=== PATIENT | male | born 2000 | race Caucasian/White ===

== ENCOUNTER 2021-05-02 09:21 | Emergency (ER) | payer OTHER ==
[~2021-05-02] VITALS: Ht 188 cm; Wt 109.0 kg
[2021-05-02] MEDS ORDERED: NAPR220C14 PO (09:50)
[2021-05-02 11:49] LABS: BASO % 0.7 % (0.0-1.0); EOS # 0.1 10^3/uL (0.0-0.5); EOS % 1.6 % (0.0-3.0); HEMATOCRIT 46.5 % (42.0-52.0); HEMOGLOBIN 15.3 g/dl (13.5-17.5); LYMPH # 1.8 10^3/uL (1.5-5.0); LYMPH % 31.9 % (24.0-44.0); MEAN CORPUSCULAR HEMOGLOBIN 30.4 pg (27.0-33.0); MEAN CORPUSCULAR HGB CONC 32.9 g/dl (32.0-36.5); MEAN CORPUSCULAR VOLUME 92.4 fl (80.0-96.0); MONO # 0.3 10^3/uL (0.0-0.8); MONO % 5.8 % (2.0-8.0); NEUTROPHILS # 3.4 10^3/uL (1.5-8.5); PLATELET COUNT, AUTOMATED 228 10^3/uL (150-450); RED BLOOD COUNT 5.03 10^6/uL (4.30-6.10); WHITE BLOOD COUNT 5.7 10^3/uL (4.0-10.0)
--- NOTE | 2021-05-02 11:54 | REP ---
INDICATION: severe headaches with exertion. COMPARISON: None. TECHNIQUE: CT brain performed in the axial plane. Coronal reconstruction images are performed. FINDINGS: The ventricles are normal in size and position.. There is no midline shift or mass effect. Jeff-white differentiation is well maintained. There is no acute intracranial hemorrhage or extra-axial fluid collection. Bone window examination is unremarkable. The visualized mastoid air cells and paranasal sinuses are clear. IMPRESSION: Negative noncontrast CT brain. <Electronically signed by Gilbert Jeff > 05/02/21 2365
--- NOTE | 2021-05-02 12:05 | REP ---
INDICATION: exertional headache/ tachycardia COMPARISON: None. TECHNIQUE: PA/Lateral FINDINGS: Lungs: Clear, no infiltrate. Heart: Normal in size. Mediastinum: Mediastinal silhouette unremarkable. Pleural angles: Unremarkable.. Bones and soft tissues: Unremarkable. IMPRESSION: No acute pulmonary disease. <Electronically signed by Gilbert Jeff > 05/02/21 1205
[2021-05-02 12:23] LABS: THYROID STIMULATING HORMONE 1.92 uIU/ML (0.358-3.740)
[2021-05-02] MEDS ORDERED: NORT10CA2 PO (12:41)
[2021-05-02 13:12] VITALS: BP 136/86
--- NOTE | 2021-05-04 19:44 | ECGEPIP ---
[facility] - ED Test Date: 2021-05-02 Pat Name: KATIE GARNICA Department: Room: - Gender: Male Copy Chaser: Kristi SUAZO : 2000 Requested By: MARCIAL Bermudez PA-C Order Number: [id number] Reading MD: Renee Klein Measurements Intervals [place] Rate: 60 P: 61 IL: 192 QRS: 67 QRSD: 110 T: 35 QT: 412 QTc: 412 Interpretive Statements Normal sinus rhythm with sinus arrhythmia ivcd no prior Electronically Signed on 05-04-2021 19:44:18 EDT by Renee Klein
== END 2021-05-02 13:20 | disposition home or self-care (01) ==
LOC: M ED 09:21
DX: R51.9 Headache, unspecified (principal)

== ENCOUNTER 2021-08-02 15:21 | Emergency (ER) | payer OTHER ==
[~2021-08-02] VITALS: Ht 188 cm; Wt 102.3 kg
[~2021-08-02 15:21] MED LIST: NAPR220C14 PO; NORT10CA2 PO
--- OUTSIDE RECORDS SUMMARY | 2021-08-02 15:28 | CCD | Continuity of Care Document ---
Author Author Tashi LEI Organization Unknown Address [address] [place] [address] Phone [phone] Care Team Providers Care Reach Truck Operator Name Role Phone Bettie Foley AUTM [phone] Problems Active Problems Provider Date Migraine without aura, not refractory Rainer Parada M.D. Onset: 05/16/2021 Sudden visual loss Rainer Parada M.D. Onset: 05/16/2021 Benign exertional headache Rainer Parada M.D. Onset: 04/24 Social History Type Date Description Comments Sex Unknown Tobacco Use Start: Unknown Patient is a current smoker, smo kes every day Allergies, Adverse Reactions, Alerts Description No Known Drug Allergies Medications Active Medications SIG Qnty Indications Ordering Provide r Date Nortriptyline HCL 25mg Capsules Take one capsule at bedtime for 5 days, then take 2 capsules at bedtime. 60caps Rainer Parada M.D. 05/16/2021 Immunizations Description No Information Available Vital Signs Date Vital Result Comment 05/16/2021 8:32am Respiratory Rate 12 /min Height 74 inches 6'2" Weight 230.00 lb BMI (Body Mass Index) 29.5 kg/m2 [place] Body Weight 190 lb Results Description No Information Available Procedures Date Code Description Status 05/16/2021 74171 Office Consultation Level 4 Comp leted Medical Devices Description No Information Available Encounters Type Date Location Provider Dx Diagnosis Office Visit 05/16/2021 8:00a Main office - [place] Rainer phillips M.D. G44.84 Primary exertional headache G43.009 Migraine w/o aura, not intra ctable, w/o status migrainosus R55 Syncope and collapse Assessments Date Code Description Provider 05/16/2021 G44.84 Primary exertional headache Mitchel Parada M.D. 05/16/2021 G43.009 Migraine without aur a, not intractable, without status migrainosus Rainer Parada M.D. 05/16/2021 R55 Syncope and collapse Rainer rendon M.D. Plan of Treatment Future Appointment(s):* 09/02/2021 2:30 pm - Rainer Parada M.D. at [facility] * 07/25/2021 10:00 am - Ans/VS at [facility] * 06/23/2021 2:30 pm - EEG at [facility] Functional Status Description No Information Available Mental Status Description No Information Available Referrals Refer to Dr Reason for Referral Status Appt Date Rainer Parada M.D. Created [address] [place] [address] [phone]
--- OUTSIDE RECORDS SUMMARY | 2021-08-02 15:28 | CCD | Continuity of Care Document ---
Author Author Ans/Tashi BOLAND Organization Unknown Address [address] [place] [address] Phone [phone] Problems Active Problems Provider Date Migraine without aura, not refractory Rainer Parada M.D. Onset: 05/16/2021 Sudden visual loss Rainer Parada M.D. Onset: 05/16/2021 Benign exertional headache Rainer Parada M.D. Onset: 04/24 Social History Type Date Description Comments Sex Unknown Tobacco Use Start: Unknown Patient is a current smoker, smo kes every day Allergies and adverse reactions Description No Known Drug Allergies Medications Active [...] lb BMI (Body Mass Index) 29.5 kg/m2 [place] Body Weight 190 lb Results Description No Information Available Procedures Date Code Description Status 06/23/2021 66534 EEG Recording Awake & Asleep Com pleted 06/23/2021 43844 EEG Recording Awake & Asleep Com pleted 05/25/2021 64291 MRI Brain W/O Contrast Completed 05/25/2021 29669 MRI Brain W/O Contrast Completed 05/25/2021 04074 Magnetic Resonance Angiography N kahdar W/O Contrast Materials Completed 05/25/2021 15403 Magnetic Resonance Angiography N khadar W/O Contrast Materials Completed 05/25/2021 33371 Magnetic Resonance Angiogtaphy H ead W/O Contrast Material(S) Completed 05/25/2021 01426 Magnetic Resonance Angiogtaphy H ead W/O Contrast Material(S) Completed 05/16/2021 73968 Office Consultation Level 4 Comp leted Medical Devices Description No Information Available Encounters Type Date Location Provider Dx Diagnosis Office Visit 05/16/2021 8:00a [facility] office - [place] Rainer phillips M.D. G44.84 Primary exertional headache G43.009 Migraine w/o aura, not intra ctable, w/o status migrainosus R55 Syncope and collapse Assessments Date Code Description Provider 06/23/2021 R55 Syncope and collapse Mirna romero M.D. 06/23/2021 R55 Syncope and collapse EEG 05/25/2021 G43.009 Migraine without aur a, not intractable, without status migrainosus Cara Boyd M.D. 05/25/2021 G43.009 Migraine without aur a, not intractable, without status migrainosus MRI 05/25/2021 H53.133 Sudden visual loss, bilateral Ab dul Deb, Cesia 05/25/2021 H53.133 Sudden visual loss, bilateral MR I 05/25/2021 R55 Syncope and collapse Cara Boyd M.D. 05/25/2021 R55 Syncope and collapse MRI 05/16/2021 G44.84 Primary exertional headache Mitchel Parada M.D. 05/16/2021 G43.009 Migraine without aur a, not intractable, without status migrainosus Rainer Parada M.D. 05/16/2021 R55 Syncope and collapse Rainer rendon M.D. Plan of Treatment Future Appointment(s):* 09/02/2021 2:30 pm - Rainer Parada M.D. at [facility] Functional Status Description No Information Available Mental Status Description No Information Available Referrals Refer to Dr Reason for Referral Status Appt Date Rainer Parada M.D. Created [address] [place] [address] [phone] Rainer Parada M.D. Created [address] [place] [address] [phone]
--- OUTSIDE RECORDS SUMMARY | 2021-08-02 15:28 | CCD | Continuity of Care Document ---
Author Author Tashi LEI Organization Unknown Address [address] [place] [address] Phone [phone] Care Team Providers Care Oracle Reports Developer Name Role Phone Bettie Foley MatiasMeseret AUTM [phone] Problems Active Problems Provider Date Migraine without [...] lb BMI (Body Mass Index) 29.5 kg/m2 [place] Body Weight 190 lb Results Description No Information Available Procedures Date Code Description Status 05/25/2021 36387 MRI Brain W/O Contrast Completed 05/25/2021 76875 MRI Brain W/O Contrast Completed 05/25/2021 93620 Magnetic Resonance Angiography N khadar W/O Contrast Materials Completed 05/25/2021 17800 Magnetic Resonance Angiography N khadar W/O Contrast Materials Completed 05/25/2021 29022 Magnetic Resonance Angiogtaphy H ead W/O Contrast Material(S) Completed 05/25/2021 38697 Magnetic Resonance Angiogtaphy H ead W/O Contrast Material(S) Completed 05/16/2021 68348 Office Consultation Level 4 Comp leted Medical Devices Description No Information Available Encounters Type Date Location Provider Dx Diagnosis Office Visit 05/16/2021 8:00a [facility] Rainer phillips M.D. G44.84 Primary exertional headache G43.009 Migraine w/o aura, not intra ctable, w/o status migrainosus R55 Syncope and collapse Assessments Date Code Description Provider 05/25/2021 G43.009 Migraine without aur a, not intractable, without status migrainosus Cara Cesia Boyd 05/25/2021 G43.009 Migraine without aur a, not intractable, without status migrainosus MRI 05/25/2021 H53.133 Sudden visual loss, bilateral Ab dul Deb, Maxi.DConrad 05/25/2021 H53.133 Sudden visual loss, bilateral MR I 05/25/2021 R55 Syncope and collapse Cara Cesia Boyd 05/25/2021 R55 Syncope and collapse MRI 05/16/2021 G44.84 Primary exertional headache Mitchel Parada M.D. 05/16/2021 G43.009 Migraine without aur a, not intractable, without status migrainosus Rainer Parada M.D. 05/16/2021 R55 Syncope and collapse Rainer rendon M.D. Plan of Treatment Future Appointment(s):* 09/02/2021 2:30 pm - Rainer Parada M.D. at [facility] * 07/25/2021 10:00 am - Ans/VS at [facility] * 06/23/2021 2:30 pm - EEG at [facility] Functional Status Description No Information Available Mental Status Description No Information Available Referrals Refer to Dr Reason for Referral Status Appt Date Rainer Parada M.D. Created [address] [place] [address] [phone] Rainer Parada M.D. Created [address] [place] [address] [phone]
--- OUTSIDE RECORDS SUMMARY | 2021-08-02 15:28 | CCD | Continuity of Care Document ---
Author Author Tashi HULL Organization Unknown Address [address] [place] [address] Phone [phone] Problems Active Problems Provider Date Migraine without [...] lb BMI (Body Mass Index) 29.5 kg/m2 [place] Body Weight 190 lb Results Description No Information Available Procedures Date Code Description Status 06/23/2021 90308 EEG Recording Awake & Asleep Com pleted 06/23/2021 96158 EEG Recording Awake & Asleep Com pleted 05/25/2021 73493 MRI Brain W/O Contrast Completed 05/25/2021 01385 MRI Brain W/O Contrast Completed 05/25/2021 64167 Magnetic Resonance Angiography N khadar W/O Contrast Materials Completed 05/25/2021 24616 Magnetic Resonance Angiography N khadar W/O Contrast Materials Completed 05/25/2021 22881 Magnetic Resonance Angiogtaphy H ead W/O Contrast Material(S) Completed 05/25/2021 59641 Magnetic Resonance Angiogtaphy H ead W/O Contrast Material(S) Completed 05/16/2021 14374 Office Consultation Level 4 Comp leted Medical Devices Description No Information Available Encounters Type Date Location Provider Dx Diagnosis Office Visit 05/16/2021 8:00a [facility] Rainer phillips M.D. G44.84 Primary exertional headache [...] 2:30 pm - Rainer Parada M.D. at [facility] * 07/25/2021 10:00 am - Ans/VS at [facility] Functional Status Description No Information Available Mental Status Description No Information Available Referrals Refer to Reason for Referral Status Appt Date Rainer Parada M.D. Created 0 [facility] [place] [address] [phone] Rainer Parada M.D. Created [address] [place] [address] [phone]
--- OUTSIDE RECORDS SUMMARY | 2021-08-02 15:28 | CCD | Continuity of Care Document ---
Author Author Tashi TAPIA M.D. Organization Unknown Address [address] [place] [address] Phone [phone] Care Team Providers Care Manager Grant Name Role Phone AjmichaelangelBettie AUTM [phone] Problems Active Problems Provider Date Migraine without aura, not refractory Rainer Tapia M.D. Onset: 05/16/2021 Sudden visual loss Rainer Tapia M.D. Onset: 05/16/2021 Benign exertional headache Rainer Tapia M.D. Onset: 04/24 Social History Type Date Description Comments Sex Unknown Tobacco Use Start: Unknown Patient is a current smoker, smo kes every day Allergies, Adverse Reactions, Alerts Description No Known Drug Allergies Medications Active Medications SIG Qnty Indications Ordering Provide r Date Nortriptyline HCL 25mg Capsules Take one capsule at bedtime for 5 days, then take 2 capsules at bedtime. 60caps Rainer Tapia M.D. 05/16/2021 Immunizations Description No Information Available Vital Signs Date Vital Result Comment 05/16/2021 8:32am Respiratory Rate 12 /min Height 74 inches 6'2" Weight 230.00 lb BMI (Body Mass Index) 29.5 kg/m2 [place] Body Weight 190 lb Results Description No Information Available Procedures Description No Information Available Medical Devices Description No Information Available Encounters Description No Information Available Assessments Date Code Description Provider 05/16/2021 G44.84 Primary exertional headache Mithcel Tapia M.D. 05/16/2021 G43.009 Migraine without aur a, not intractable, without status migrainosus Rainer Tapia M.D. 05/16/2021 R55 Syncope and collapse Rainer rendon M.D. Plan of Treatment Future Appointment(s):* 09/02/2021 2:30 pm - Rainer Tapia M.D. at [facility] * 07/25/2021 10:00 am - Ans/VS at [facility] * 06/23/2021 2:30 pm - EEG at [facility] Functional Status Description No Information Available Mental Status Description No Information Available Referrals Description No Information Available
--- OUTSIDE RECORDS SUMMARY | 2021-08-02 15:28 | CCD | Continuity of Care Document ---
Author Author Tashi HULL Organization Unknown Address [address] [place] [address] Phone [phone] Care Team Providers Care Manufacturing Process Technician Name Role Phone Bettie Foley MatiasMeseret AUTM [phone] Problems Active Problems Provider Date Migraine without [...] lb BMI (Body Mass Index) 29.5 kg/m2 [place] Body Weight 190 lb Results Description No Information Available Procedures Date Code Description Status 05/25/2021 30836 MRI Brain W/O Contrast Completed 05/25/2021 75174 MRI Brain W/O Contrast Completed 05/25/2021 20920 Magnetic Resonance Angiography N khadar W/O Contrast Materials Completed 05/25/2021 57824 Magnetic Resonance Angiography N khadar W/O Contrast Materials Completed 05/25/2021 04134 Magnetic Resonance Angiogtaphy H ead W/O Contrast Material(S) Completed 05/25/2021 28844 Magnetic Resonance Angiogtaphy H ead W/O Contrast Material(S) Completed 05/16/2021 00889 Office Consultation Level 4 Comp leted Medical Devices Description No Information Available Encounters Type Date Location Provider Dx Diagnosis Office Visit 05/16/2021 8:00a [facility] Rainer phillips M.D. G44.84 Primary exertional headache G43.009 Migraine w/o aura, not intra ctable, w/o status migrainosus R55 Syncope and collapse Assessments Date Code Description Provider 05/25/2021 G43.009 Migraine without aur a, not intractable, without status migrainosus Cara DebCesia betancur 05/25/2021 G43.009 Migraine without aur a, not [...] 2:30 pm - Rainer Parada M.D. at [facility] * 07/25/2021 10:00 am - Ans/VS at [facility] Functional Status Description No Information Available Mental Status Description No Information Available Referrals Refer to Dr Reason for Referral Status Appt Date Rainer Parada M.D. Created [address] [place] [address] [phone] Rainer Parada M.D. Created [address] [place] [address] [phone]
--- OUTSIDE RECORDS SUMMARY | 2021-08-02 15:28 | CCD | Continuity of Care Document ---
Author Author Ans/Tashi BOLAND Organization Unknown Address [address] [place] [address] Phone [phone] Problems Active Problems Provider Date Migraine without [...] lb BMI (Body Mass Index) 29.5 kg/m2 [place] Body Weight 190 lb Results Description No Information Available Procedures Date Code Description Status 07/25/2021 45646 Sympathetic Skin Responses Compl eted 07/25/2021 09871 Test Autonomic Nervous System, C ardiovagal Innervation Completed 06/23/2021 96822 EEG Recording Awake & Asleep Com pleted 06/23/2021 29596 EEG Recording Awake & Asleep Com pleted 05/25/2021 18796 MRI Brain W/O Contrast Completed 05/25/2021 17488 MRI Brain W/O Contrast Completed 05/25/2021 91601 Magnetic Resonance Angiography N khadar W/O Contrast Materials Completed 05/25/2021 47157 Magnetic Resonance Angiography N khadar W/O Contrast Materials Completed 05/25/2021 80867 Magnetic Resonance Angiogtaphy H ead W/O Contrast Material(S) Completed 05/25/2021 13481 Magnetic Resonance Angiogtaphy H ead W/O Contrast Material(S) Completed 05/16/2021 26296 Office Consultation Level 4 Comp leted Medical Devices Description No Information Available Encounters Type Date Location Provider Dx Diagnosis Office Visit 05/16/2021 8:00a [facility] [place] Rainer phillips M.D. G44.84 Primary exertional headache G43.009 Migraine w/o aura, not intra ctable, w/o status migrainosus R55 Syncope and collapse Assessments Date Code Description Provider 07/25/2021 R55 Syncope and collapse Rainer rendon M.D. 07/25/2021 R55 Syncope and collapse Ans/VS 06/23/2021 R55 Syncope and collapse Mirna romero M.D. 06/23/2021 R55 Syncope and collapse EEG 05/25/2021 G43.009 Migraine without aur a, not intractable, without status migrainosus Cara Boyd M.D. 05/25/2021 G43.009 Migraine without aur a, not intractable, without status migrainosus MRI 05/25/2021 H53.133 Sudden visual loss, bilateral Ab dul Lenore BoydDConrad 05/25/2021 H53.133 Sudden visual loss, bilateral MR [...] 2:30 pm - Rainer Parada M.D. at Main office - [place] Functional Status Description No Information Available Mental Status Description No Information Available Referrals Refer to Reason for Referral Status Appt Date Rainer Parada M.D. Created [address] [place] [address] [phone] Rainer Parada M.D. Created [address] [place] [address] [phone]
--- OUTSIDE RECORDS SUMMARY | 2021-08-02 15:28 | CCD | Continuity of Care Document ---
Author Author Tashi TAPIA M.D. Organization Unknown Address [address] [place] [address] Phone [phone] Care Team Providers Care Almond Cutting Machine Tender Name Role Phone AjmichaelangelBettie AUTM Problems Active Problems Provider Date Migraine without [...] lb BMI (Body Mass Index) 29.5 kg/m2 [place] Body Weight 190 lb Results Description No Information Available Procedures Date Code Description Status 05/16/2021 84149 Office Consultation Level 4 Comp leted Medical Devices Description No Information Available Encounters Type Date Location Provider Dx Diagnosis Office Visit 05/16/2021 8:00a Main office - [place] Rainer phillips M.D. G44.84 Primary exertional headache G43.009 Migraine w/o aura, not intra ctable, w/o status migrainosus R55 Syncope and collapse Assessments Date Code Description Provider 05/16/2021 G44.84 Primary exertional headache Mitchel Tapia M.D. 05/16/2021 G43.009 Migraine without aur a, not intractable, without status migrainosus Rainer Tapia M.D. 05/16/2021 R55 Syncope and collapse Rainer rendon M.D. Plan of Treatment Future Appointment(s):* 09/02/2021 2:30 pm - Rainer Tapia M.D. at [facility] * 07/25/2021 10:00 am - Ans/VS at [facility] * 06/23/2021 2:30 pm - EEG at [facility] Functional Status Description No Information Available Mental Status Description No Information Available Referrals Refer to Dr Reason for Referral Status Appt Date Rainer Tapia M.D. Created 0 [facility] [place] [address] [phone]
--- OUTSIDE RECORDS SUMMARY | 2021-08-02 15:28 | CCD ---
Author Author [facility] Organization [facility] Address Unknown Phone Unavailable Care Team Providers Care Preschool Paraprofessional Name Role Phone Tracy Parada MD Unavailable Unavailable Tracy Parada MD Unavailable Unavailable Tracy Parada MD Unavailable Unavailable Tracy Parada MD Unavailable Unavailable Tracy Parada MD Unavailable Unavailable Tracy Parada MD Unavailable Unavailable Tracy Parada MD Unavailable Unavailable Tracy Parada MD Unavailable Unavailable Tracy Parada MD Unavailable Unavailable Tracy Parada MD Unavailable Unavailable Tracy Parada MD Unavailable Unavailable Tracy Parada MD Unavailable Unavailable Tracy Parada MD Unavailable Unavailable Tracy Parada MD Unavailable Unavailable Tracy Parada MD Unavailable Unavailable Tracy Parada MD Unavailable Unavailable Tracy Parada MD Unavailable Unavailable Tracy Parada MD Unavailable Unavailable Tracy Parada MD Unavailable Unavailable Tracy Parada MD Unavailable Unavailable Tracy Parada MD Unavailable Unavailable Tracy Parada MD Unavailable Unavailable Tracy Parada MD Unavailable Unavailable Tracy Parada MD Unavailable Unavailable Tracy Parada MD Unavailable Unavailable Tracy Parada MD Unavailable Unavailable Tracy Parada MD Unavailable Unavailable Tracy Parada MD Unavailable Unavailable Tracy Parada MD Unavailable Unavailable Tracy Parada MD Unavailable Unavailable Tracy Parada MD Unavailable Unavailable Tracy Parada MD Unavailable Unavailable Tracy Parada MD Unavailable Unavailable Tracy Parada MD Unavailable Unavailable Tracy Parada MD Unavailable Unavailable Tracy Parada MD Unavailable Unavailable Tracy Parada MD Unavailable Unavailable Tracy Parada MD Unavailable Unavailable Tracy Parada MD Unavailable Unavailable Tracy Parada MD Unavailable Unavailable Tracy Parada MD Unavailable Unavailable Tracy Parada MD Unavailable Unavailable Tracy Parada MD Unavailable Unavailable Tracy Parada MD Unavailable Unavailable Tracy Parada MD Unavailable Unavailable Tracy Parada MD Unavailable Unavailable Tracy Parada MD Unavailable Unavailable Tracy Parada MD Unavailable Unavailable Tracy Parada MD Unavailable Unavailable Tracy Parada MD Unavailable Unavailable Tracy Parada MD Unavailable Unavailable Tracy Parada MD Unavailable Unavailable Tracy Parada MD Unavailable Unavailable Tracy Parada MD Unavailable Unavailable Tracy Parada MD Unavailable Unavailable Tracy Parada MD Unavailable Unavailable Tracy Parada MD Unavailable Unavailable Tracy Parada MD Unavailable Unavailable Tracy Parada MD Unavailable Unavailable Tracy Parada MD Unavailable Unavailable Tracy Parada MD Unavailable Unavailable Tracy Parada MD Unavailable Unavailable Tracy Parada MD Unavailable Unavailable Tracy Parada MD Unavailable Unavailable Tracy Parada MD Unavailable Unavailable Tracy Parada MD Unavailable Unavailable Tracy Parada MD Unavailable Unavailable Tracy Parada MD Unavailable Unavailable Tracy Parada MD Unavailable Unavailable Tracy Parada MD Unavailable Unavailable Tracy Parada MD Unavailable Unavailable Tracy Parada MD Unavailable Unavailable Tracy Parada MD Unavailable Unavailable Tracy Parada MD Unavailable Unavailable Tracy Parada MD Unavailable Unavailable Tracy Parada MD Unavailable Unavailable Tracy Parada MD Unavailable Unavailable Tracy Parada MD Unavailable Unavailable Tracy Parada MD Unavailable Unavailable Tracy Parada MD Unavailable Unavailable Re-disclosure Warning The records that you are about to access may contain information from federally-assisted alcohol or drug abuse programs. If such information is present, then the following federally mandated warning applies: This information has been disclosed to you from records protected by federal confidentiality rules (42 CFR part 2). The federal rules prohibit you from making any further disclosure of this information unless further disclosure is expressly permitted by the written consent of the person to whom it pertains or as otherwise permitted by 42 CFR part 2. A general authorization for the release of medical or other information is NOT sufficient for this purpose. The Federal rules restrict any use of the information to criminally investigate or prosecute any alcohol or drug abuse patient.The records that you are about to access may contain highly sensitive health information, the redisclosure of which is protected by Article 27-F of the [facility] Public Health law. If you continue you may have access to information: Regarding HIV / AIDS; Provided by facilities licensed or operated by the [facility] Office of Mental Health; or Provided by the [facility] Office for People With Developmental Disabilities. If such information is present, then the following [facility] mandated warning applies: This information has been disclosed to you from confidential records which are protected by state law. State law prohibits you from making any further disclosure of this information without the specific written consent of the person to whom it pertains, or as otherwise permitted by law. Any unauthorized further disclosure in violation of state law may result in a fine or fpc sentence or both. A general authorization for the release of medical or other information is NOT sufficient authorization for further disc losure. Encounters Encounter Providers Location Date Indications Data Source(s ) Outpatient Attender: Rainer Parada MD [facility] office [facility] 05/16/2021 08:00:00 AM EDT [facility] ([facility] [place]) Immunizations Vaccine Date Status Description Data Source(s) COVID-19 VACCINE Pfizer 11/20/2020 12:00:00 AM EDT completed WVSIIS Vaccine Series Complete: NOThis Data was Submitted to [facility] Via [employer] Medications Medication Brand Name Start Date Product Form Dose Route Admi nistrative Instructions Pharmacy Instructions Status Indications Reaction Description Data Source(s) Nortriptyline 25 MG Oral Capsule Nortriptyline HCL 05/16/2021 12:00 :00 AM EDT active [facility] ([facility], ) Insurance Providers Payer name Policy type / Coverage type Policy ID Covered democrat ID Covered democrat's relationship to jennings Policy Jennings Plan Information [facility] ACTIVE DUTY [id number] Problems, Conditions, and Diagnoses Code Display Name Description Problem Type Effective Dates Data Source(s) [id number] Benign exertional headache Benign exertional headache Problem 05/16/2021 12:00:00 AM EDT [facility] ([facility], ) [id number] Sudden visual loss Sudden visual loss Problem 12:00:00 AM EDT [facility] ([facility], ) [id number] Migraine without aura, not refractory Mi graine without aura, not refractory Problem 05/16/2021 12:00:00 AM EDT [facility] ([facility], ) Surgeries/Procedures Procedure Description Date Indications Data Source(s) TSTG ANS FUNCJ CARDIOVAGAL INNERVAJ PARASYMP 12:00:00 AM EST [facility] ([facility], ) TESTING AUTONOMIC NERVOUS SYSTEM FUNCTION 07/25/2021 1 2:00:00 AM EST [facility] ([facility], ) ELECTROENCEPHALOGRAM W/REC AWAKE&ASLEEP 06/23/2021 12: 00:00 AM EDT [facility] ([facility], ) ELECTROENCEPHALOGRAM W/REC AWAKE&ASLEEP 06/23/2021 12: 00:00 AM EDT [facility] ([facility], ) Magnetic Resonance Angiogtaphy Head W/O Contrast Material(S) 05/25/2021 12:00:00 AM EDT [facility] ([facility], ) Magnetic Resonance Angiogtaphy Head W/O Contrast Material(S) 05/25/2021 12:00:00 AM EDT [facility] ([facility], ) Magnetic Resonance Angiography Neck W/O Contrast Materials 05/25/2021 12:00:00 AM EDT [facility] ([facility], ) Magnetic Resonance Angiography Neck W/O Contrast Materials 05/25/2021 12:00:00 AM EDT [facility] ([facility], ) MRI BRAIN BRAIN STEM W/O CONTRAST MATERIAL 05/25/2021 12:00:00 AM EDT [facility] ([facility]) MRI BRAIN BRAIN STEM W/O CONTRAST MATERIAL 05/25/2021 12:00:00 AM EDT [facility] ([facility]) OFFICE CONSULTATION NEW/ESTAB PATIENT 60 MIN 12:00:00 AM EDT [facility] ([facility]) Results No Information Social History No Information Vital Signs ID Date Data Source UNK Name Value Range Interpretation Code Description Data Source(s) Respiratory rate 12 /min 12 /min [facility] ( [facility]) Body height 74 [in_i] 74 [in_i] [facility] ([facility]) 6'2" Body weight 230.00 [lb_av] 230.00 [lb_av] [facility] ([facility]) Body mass index (BMI) [Ratio] 29.5 kg/m2 29.5 k g/m2 [facility] ([facility]) [place] body weight 190 [lb_av] 190 [lb_av] [facility] Montero ([facility])
--- OUTSIDE RECORDS SUMMARY | 2021-08-02 18:19 | CCD ---
Author Author [facility] Organization [facility] Address Unknown Phone Unavailable Care Team Providers Care Featherer Name Role Phone Tracy Parada MD Unavailable [...] is protected by Article 27-F of the [facility] Public Health law. If you continue you may have access to information: Regarding HIV / AIDS; Provided by facilities licensed or operated by the [facility] Office of Mental Health; or Provided by the [facility] Office for People With Developmental Disabilities. If such information is present, then the following [facility] mandated warning applies: This information has [...] law may result in a fine or senior living sentence or both. A general authorization for the release of medical or other information is NOT sufficient authorization for further disc losure. Encounters Encounter Providers Location Date Indications Data Source(s ) Outpatient Attender: Rainer Parada MD [facility] office [facility] 05/16/2021 08:00:00 AM EDT [facility] ([facility] [place]) Immunizations Vaccine Date Status Description Data Source(s) COVID-19 VACCINE Pfizer 11/20/2020 12:00:00 AM EDT completed MISIIS Vaccine Series Complete: NOThis Data was Submitted to [facility] Via [employer]. Medications Medication Brand Name Start Date Product Form Dose Route Admi nistrative Instructions Pharmacy Instructions Status Indications Reaction Description Data Source(s) Nortriptyline 25 MG Oral Capsule Nortriptyline HCL 05/16/2021 12:00 :00 AM EDT active [facility] ([facility], ) Insurance Providers Payer name Policy type / Coverage type Policy ID Covered green party ID Covered green party's relationship to jennings Policy Jennings Plan Information [facility] ACTIVE DUTY [id number] Problems, Conditions, and Diagnoses Code Display Name Description Problem Type Effective Dates Data Source(s) [id number] Benign exertional headache Benign exertional headache Problem 05/16/2021 12:00:00 AM EDT [facility] ([facility], ) [id number] Sudden visual loss Sudden visual loss Problem 12:00:00 AM EDT [facility] ([facility], ) [id number] Migraine without aura, not refractory Mi graine without aura, not refractory Problem 05/16/2021 12:00:00 AM EDT [facility] ([facility], ) Surgeries/Procedures Procedure Description Date Indications Data Source(s) TSTG ANS FUNCJ CARDIOVAGAL INNERVAJ PARASYMP 12:00:00 AM EST [facility] ([facility], ) TESTING AUTONOMIC NERVOUS SYSTEM FUNCTION 07/25/2021 1 2:00:00 AM EST [facility] ([facility], ) ELECTROENCEPHALOGRAM W/REC AWAKE&ASLEEP 06/23/2021 12: 00:00 AM EDT [facility] ([facility], ) ELECTROENCEPHALOGRAM W/REC AWAKE&ASLEEP 06/23/2021 12: 00:00 AM EDT [facility] ([facility], ) Magnetic Resonance Angiogtaphy Head W/O Contrast Material(S) 05/25/2021 12:00:00 AM EDT [facility] ([facility], ) Magnetic Resonance Angiogtaphy Head W/O Contrast Material(S) 05/25/2021 12:00:00 AM EDT [facility] ([facility], ) Magnetic Resonance Angiography Neck W/O Contrast Materials 05/25/2021 12:00:00 AM EDT [facility] ([facility], ) Magnetic Resonance Angiography Neck W/O Contrast Materials 05/25/2021 12:00:00 AM EDT [facility] ([facility], ) MRI BRAIN BRAIN STEM W/O CONTRAST MATERIAL 05/25/2021 12:00:00 AM EDT [facility] ([facility]) MRI BRAIN BRAIN STEM W/O CONTRAST MATERIAL 05/25/2021 12:00:00 AM EDT [facility] ([facility]) OFFICE CONSULTATION NEW/ESTAB PATIENT 60 MIN 12:00:00 AM EDT [facility] ([facility]) Results No Information Social History No Information Vital Signs ID Date Data Source UNK Name Value Range Interpretation Code Description Data Source(s) Respiratory rate 12 /min 12 /min [facility] ( [facility]) Body height 74 [in_i] 74 [in_i] [facility] ([facility]) 6'2" Body weight 230.00 [lb_av] 230.00 [lb_av] [facility] ([facility]) Body mass index (BMI) [Ratio] 29.5 kg/m2 29.5 k g/m2 [facility] ([facility]) [place] body weight 190 [lb_av] 190 [lb_av] JUD[facility] Montero ([facility])
--- NOTE | 2021-08-02 18:49 | REP ---
INDICATION: productive cough. COMPARISON: PA and lateral chest, 05/02/2021. TECHNIQUE: Upright PA and lateral images of the chest were obtained. FINDINGS: The lungs are clear. The heart borders mediastinum and pulmonary vascular pattern normal. The upper abdominal bowel gas pattern is normal. There are no significant bony abnormalities of the chest IMPRESSION: No evidence of acute cardiopulmonary pathology. <Electronically signed by Javid Tavarez > 08/02/21 [id number]
[2021-08-02 19:16] LABS: RSV AMPLIFICATION NEGATIVE (NEGATIVE)
[2021-08-02] MEDS ORDERED: PROAAER10 INH (19:26)
[2021-08-02] MEDS ORDERED: OSEL75CA PO (19:26)
[2021-08-02] MEDS ORDERED: TESS100C PO (19:26)
[2021-08-02] MEDS ORDERED: OSELTAMIVIR PHOSPHATE 75 MG CAP (TAMIFLU) PO ONE (19:30)
[2021-08-02 20:06] VITALS: BP 117/64
== END 2021-08-02 20:14 | disposition home or self-care (01) ==
LOC: M ED 15:21
DX: J09.X2 Influenza due to identified novel influenza A virus with other respiratory manifestations (principal); R05.9 Cough, unspecified

== ENCOUNTER → 2022-09-07 | Outpatient (REF) | payer OTHER ==
[~2022-09-07] MED LIST changes: +OSEL75CA PO; +PROAAER10 INH; +TESS100C PO
[2022-09-07 09:40] LABS: SEMEN APPEARANCE OPAQUE (OPAQUE); SEMEN VISCOSITY LIQUID (LIQUID); WBC CONCENTRATION <=1 M/ml (<=1 M/ml)
[2022-09-07 09:41] LABS: SPERM CONCENTRATION 100.8 M/ml (>=15.0)
== END ==
LOC: M LAB REF 09:13
PROVIDERS: ATTEND Obstetrics & Gynecology
DX: N46.8 Other male infertility (principal)

== ENCOUNTER 2024-08-10 06:08 | Day surgery (SDC) | payer OTHER ==
[~2024-08-10] VITALS: Ht 188 cm; Wt 116.1 kg
[2024-08-10 06:41] LABS: HEMATOCRIT 44.5 % (42.0-52.0); HEMOGLOBIN 15.1 g/dl (13.5-17.5); MEAN CORPUSCULAR HGB CONC 33.9 g/dl (32.0-36.5); MEAN CORPUSCULAR VOLUME 88.5 fl (80.0-96.0); PLATELET COUNT, AUTOMATED 240 10^3/uL (150-450); RED BLOOD COUNT 5.03 10^6/uL (4.30-6.10); WHITE BLOOD COUNT 4.9 10^3/uL (4.0-10.0)
[2024-08-10] MEDS: LR 1,000 ML IV SCH (06:45)
[2024-08-10 06:58] LABS: BLOOD UREA NITROGEN 18 MG/DL (9-23); CALCIUM LEVEL 9.5 MG/DL (8.5-10.1); CARBON DIOXIDE LEVEL 31 MMOL/L (20-31); CHLORIDE LEVEL 104 MMOL/L (98-107); CREATININE FOR GFR 0.87 MG/DL (0.70-1.30); GLOMERULAR FILTRATION RATE > 60.0 (>60); GLUCOSE, FASTING 90 MG/DL (60-100); POTASSIUM SERUM 4.2 MMOL/L (3.5-5.1); SODIUM LEVEL 143 MMOL/L (136-145)
[2024-08-10] MEDS: POVIDONE-IODINE 5% OPHTH PREP SOL 30ML As Ordered ONE (07:15)
[2024-08-10] MEDS ORDERED: MIDAZOLAM INJ 2MG/2ML VIAL As Ordered ONE (07:29)
[2024-08-10] MEDS ORDERED: propofoL 200 MG/20 ML VIAL As Ordered ONE (07:29)
[2024-08-10] MEDS ORDERED: ONDANSETRON 4MG 2ML VIAL As Ordered ONE (07:29)
[2024-08-10] MEDS ORDERED: dexmedeTOMIDine (4MCG/ML)200MCG/50ML BTL (PRECEDEX) As Ordered ONE (07:29)
[2024-08-10] MEDS ORDERED: fentaNYL 100 MCG/2 ML INJECTION As Ordered ONE (07:29)
[2024-08-10] MEDS: NS (Normal Saline) 0.9% 1,000 ML IV SCH (07:31)
[2024-08-10] MEDS: ceFAZolin SOD 2 GM in IV 1 EA IV ONE (07:55)
[2024-08-10] MEDS ORDERED: LIDOCAINE 2% 100MG/5ML SDV (FOR ANES.) As Ordered ONE (07:56)
[2024-08-10] MEDS ORDERED: ACETAMINOPHEN 1000MG/100ML IV BAG As Ordered ONE (08:07)
[2024-08-10] MEDS: BACITRACIN OINTMENT 30GM TUBE As Ordered ONE (08:24)
[2024-08-10] MEDS: LIDOCAINE 2% W/EPINEPHRINE 20ML VIAL **PRES FREE As Ordered ONE (08:24)
[2024-08-10 09:07] VITALS: BP 94/60; TEMP 96.9; O2SAT 98
== END 2024-08-10 09:30 | disposition home or self-care (01) ==
LOC: M SDC 06:08
PROVIDERS: ATTEND Plastic Surgery Surgery of the Hand
DX: D22.39 Melanocytic nevi of other parts of face (principal); F17.200 Nicotine dependence, unspecified, uncomplicated
CPT/HCPCS: 11442; 36415; 80048; 85027; 88305; J0131; J0690; J2250; J2405; J3010